=== PATIENT | female | born 1980 | race Caucasian/White ===

== ENCOUNTER 2016-09-30 17:57 | Emergency (ER) | payer OTHER ==
[~2016-09-30] VITALS: Ht 180.3 cm; Wt 117.9 kg
[2016-09-30 18:22] LABS: URINE BILIRUBIN 1+ (Negative); URINE BLOOD TRACE (Negative); URINE COLOR YELLOW; URINE GLUCOSE-RANDOM* NEGATIVE (Negative); URINE KETONES NEGATIVE (Negative); URINE NITRITE NEGATIVE (Negative); URINE PROTEIN (DIPSTICK) 1+ (Negative)
[2016-09-30 18:24] LABS: ICTOTEST (BILI CONFIRMATORY) Positive (Negative)
[2016-09-30 18:28] LABS: SQUAMOUS >10 Many /LPF (0-3)
[2016-09-30 18:29] LABS: CASTS None Seen /LPF (None Seen)
[2016-09-30 18:30] LABS: AMORPHOUS PHOSPHATES Few /LPF (None Seen); URINE RBC 3-10 Few /HPF (0-2); URINE WBC 6-15 Few /HPF (0-5)
[2016-09-30 19:25] LABS: ABSOLUTE NEUTROPHILS 4.4 thou/uL (1.4-8.2); BASOPHILS 0.8 % (0.0-2.0); HEMATOCRIT 41.9 % (37.0-47.0); HEMOGLOBIN 14.2 gm/dL (12.0-15.0); LYMPHOCYTES 29.9 % (24.0-44.0); MANUAL DIFF NO; MCH 31.7 pg (26.0-34.0); MCHC 33.9 g/dL (28.0-37.0); MCV 93.4 fL (80.0-100.0); MONOCYTES 7.7 % (1.0-8.0); PLATELET COUNT 228 thou/uL (150-400); POLYS 60.6 % (36.0-66.0); RBC 4.49 mil/uL (4.20-5.00); RDW 13.1 % (10.5-14.5); WBC 7.3 thou/uL (4.0-11.0)
[2016-09-30 19:30] LABS: CALCIUM 8.4 mg/dL (8.5-10.1); CREATININE 0.8 mg/dL (0.6-1.3); POTASSIUM 3.7 mmol/L (3.5-5.1)
[2016-09-30 19:34] LABS: TOTAL BILIRUBIN 0.4 mg/dL (<0.1-1.0); TOTAL PROTEIN 6.4 g/dL (6.4-8.2)
[2016-09-30] MEDS ORDERED: NORCO 5-325 TA1 EACH PO (20:38)
[2016-09-30] MEDS ORDERED: FLAGYL500 MG PO (20:45)
[2016-09-30] MEDS ORDERED: PHENERGAN 25 MG25 M1 PO (21:27)
[2016-09-30 21:41] VITALS: BP 109/63
[2016-10-01 21:11] LABS: CHLAMYDIA TRACHOMATIS-PCR Negative (Negative); NEISSERIA GONORRHEA-PCR Negative (Negative)
== END 2016-09-30 21:41 | disposition home or self-care (01) ==
LOC: ER 17:57
PROVIDERS: Physician Assistant
DX: K85.90 Acute pancreatitis without necrosis or infection, unspecified (principal); A59.8 Trichomoniasis of other sites; F17.210 Nicotine dependence, cigarettes, uncomplicated; Z88.2 Allergy status to sulfonamides

== ENCOUNTER 2016-10-16 18:40 | Emergency (ER) | payer BC ==
[~2016-10-16] VITALS: Ht 180.3 cm; Wt 127.0 kg
[~2016-10-16 18:40] MED LIST: FLAGYL500 MG PO; NORCO 5-325 TA1 EACH PO; PHENERGAN 25 MG25 M1 PO
[2016-10-16 18:41] VITALS: BP 112/85
[2016-10-16] MEDS ORDERED: TOBRAMYCIN SULFA5 M1 OP (19:23)
[2016-10-16] MEDS ORDERED: IBUPROFEN 800800 M1 PO (19:23)
== END 2016-10-16 19:50 | disposition home or self-care (01) ==
LOC: ER 18:40
DX: H16.001 Unspecified corneal ulcer, right eye (principal); F17.210 Nicotine dependence, cigarettes, uncomplicated; F15.10 Other stimulant abuse, uncomplicated; Z86.19 Personal history of other infectious and parasitic diseases; Z88.2 Allergy status to sulfonamides

== ENCOUNTER 2017-02-01 19:25 | Emergency (ER) | payer BC ==
[~2017-02-01] VITALS: Ht 180.3 cm; Wt 122.5 kg
[~2017-02-01 19:25] MED LIST changes: +IBUPROFEN 800800 M1 PO; +TOBRAMYCIN SULFA5 M1 OP
[2017-02-01 19:34] VITALS: BP 149/90
[2017-02-01 20:05] LABS: URINE BILIRUBIN NEGATIVE (Negative); URINE BLOOD 2+ (Negative); URINE COLOR YELLOW; URINE GLUCOSE-RANDOM* NEGATIVE (Negative); URINE KETONES NEGATIVE (Negative); URINE NITRITE NEGATIVE (Negative); URINE PROTEIN (DIPSTICK) NEGATIVE (Negative); URINE SPECIFIC GRAVITY >= 1.030 (1.003-1.035); URINE UROBILINOGEN 0.2 E.U./dl (0.2-1.0)
[2017-02-01 20:13] LABS: CASTS None Seen /LPF (None Seen); CRYSTALS None Seen /LPF (None Seen); SQUAMOUS 4-10 Moderate /LPF (0-3); URINE RBC 0-2 Rare /HPF (0-2); URINE WBC 0-5 Rare /HPF (0-5)
[2017-02-01 20:14] LABS: BACTERIA None Seen /HPF (None Seen)
[2017-02-01] MEDS ORDERED: TIZANIDINE HCL4 MG PO (20:29)
[2017-02-01] MEDS ORDERED: APAP500 PO (20:29)
== END 2017-02-01 20:31 | disposition home or self-care (01) ==
LOC: ER 19:25
PROVIDERS: Nurse Practitioner
DX: G89.29 Other chronic pain (principal); M54.5 Low back pain; F17.210 Nicotine dependence, cigarettes, uncomplicated; F12.10 Cannabis abuse, uncomplicated; Z86.19 Personal history of other infectious and parasitic diseases; Z88.2 Allergy status to sulfonamides

== ENCOUNTER 2021-06-19 20:09 | Emergency (ER) | payer BC ==
[~2021-06-19] VITALS: Ht 182.9 cm; Wt 104.3 kg
[~2021-06-19 20:09] MED LIST changes: +APAP500 PO; +TIZANIDINE HCL4 MG PO
[2021-06-19 20:22] VITALS: BP 110/65
[2021-06-19] MEDS ORDERED: DOXYCYCLINE 10100 MG PO (21:13)
== END 2021-06-19 21:42 | disposition home or self-care (01) ==
LOC: ER 20:09
DX: L03.115 Cellulitis of right lower limb (principal); F17.210 Nicotine dependence, cigarettes, uncomplicated; B17.2 Acute hepatitis E; Z79.899 Other long term (current) drug therapy; Z79.891 Long term (current) use of opiate analgesic; Z88.2 Allergy status to sulfonamides

== ENCOUNTER 2021-06-25 14:42 | Emergency (ER) | payer BC ==
[~2021-06-25] VITALS: Ht 182.9 cm; Wt 104.3 kg
[~2021-06-25 14:42] MED LIST changes: +DOXYCYCLINE 10100 MG PO
[2021-06-25 14:49] VITALS: BP 129/82
[2021-06-25 17:23] LABS: ABSOLUTE NEUTROPHILS 5.4 thou/uL (1.4-8.2); EOSINOPHILS 1.2 % (0.0-3.0); HEMATOCRIT 36.2 % (37.0-47.0); HEMOGLOBIN 12.3 gm/dL (12.0-15.0); LYMPHOCYTES 28.2 % (24.0-44.0); MCH 32.8 pg (26.0-34.0); MCHC 33.9 g/dL (28.0-37.0); MCV 96.6 fL (80.0-100.0); MONOCYTES 9.6 % (1.0-8.0); PLATELET COUNT 249 thou/uL (150-400); RBC 3.75 mil/uL (4.20-5.00); RDW 13.7 % (10.5-14.5); WBC 8.9 thou/uL (4.0-11.0)
[2021-06-25] MEDS ORDERED: CEPHALEXIN500 MG PO (17:48)
== END 2021-06-25 18:05 | disposition home or self-care (01) ==
LOC: ER 14:42
PROVIDERS: Physician Assistant
DX: L03.115 Cellulitis of right lower limb (principal); F12.90 Cannabis use, unspecified, uncomplicated; G89.29 Other chronic pain; F17.210 Nicotine dependence, cigarettes, uncomplicated; Z88.2 Allergy status to sulfonamides